=== PATIENT | female | born 1980 | race American Indian/Alaskan Native ===

== ENCOUNTER 2017-07-02 06:40 | Day surgery (SDC) | payer OTHER ==
[2017-07-02 07:12] VITALS: TEMP 97.7; O2SAT 100
[2017-07-02] MEDS ORDERED: Propofol 10 mg/ml Inj (20 ML) ONE (07:51)
--- NOTE | 2017-07-02 07:54 | CP.SDSHP ---
Same Day Surgery H & P - History Proposed Procedure: EGD Pre-Op Diagnosis: SEE NOTES - Previous Medical/Surgical History Cardiac: Hypertension Pulmonary: Asthma Neuro: Backaches Misc: Other Pain: 4.Moderate Pain - Allergies Allergies: Allergies seasonal Allergy (Uncoded 07/02/17 06:53) CONGESTION - Physical Exam General Appearance: N Vital Signs: Vital Signs 07/02/17 07:02 Temperature 97.7 F Pulse Rate 79 Respiratory 19 Rate Blood Pressure 150/98 H O2 Sat by Pulse 100 Oximetry Mental Status: Alert & Oriented x3 Neuro: WNL Heart: Other Lungs: Other GI: WNL - {Optional Preform as Required} Breast: WNL Abdomen: Other Rectal: Other Integument: WNL : WNL Ortho: Other ENT: WNL - Impression Pt. Evaluated Today:Candidate for Anesthesia & Procedure: Yes - Date & Time Time: 07:54 Short Stay Discharge - Short Stay Discharge Admitting Diagnosis/Reason for Visit: DYSPEPSIA Disposition: HOME/ ROUTINE
[2017-07-02] MEDS ORDERED: Lactated Ringer's 1,000 ML IV ONE (07:55)
[2017-07-02] MEDS ORDERED: Belladonna-Phenobarbital PO ONE (08:25)
[2017-07-02 08:51] VITALS: RESP 16
[2017-07-02 08:55] VITALS: BP 151/89; PULSE 72
== END 2017-07-02 09:05 | disposition home or self-care (01) ==
LOC: C.ENDO 06:40
PROVIDERS: ATTEND Specialist
DX: K21.0 Gastro-esophageal reflux disease with esophagitis (principal); K30 Functional dyspepsia; K29.70 Gastritis, unspecified, without bleeding; K44.9 Diaphragmatic hernia without obstruction or gangrene; I10 Essential (primary) hypertension; J45.909 Unspecified asthma, uncomplicated
CPT/HCPCS: 43239; 84703; 88305; 88342; J2001; J2704; J7120